=== PATIENT | female | born 1940 | race Caucasian/White ===

== ENCOUNTER 2018-08-24 11:45 | Day surgery (SDC) | payer MEDICARE, SELFPAY ==
[2018-08-24 12:00] VITALS: BP 134/96; PULSE 86; RESP 16; TEMP 37.6; O2SAT 99; BMI 18.2
--- NOTE | 2018-08-24 12:00 | COLBX_PTH ---
PATIENT: ESTEBAN RAINEY LOC: EN U#:[id number] AGE/SX: 77/F ROOM: RE08/24/[address]: Dr. Neris Muñoz MD : [id number] BED: DIS: 08/24/2018 SPEC #: [id number] RECD: 08/24/18 13:22 STATUS: JOSIAH REDanielle #: [id number] LAURA: 08/24/18 12:[address]: Neris Muñoz DEPT: SURGICAL PATHOLOGY RECD BY: Jailene Huggins ENTERED: 08/24/18 14:27 SP TYPE: COLON BX OT DR: MD Raven Rogers MD Tissues: A - COLON BIOPSY B - Ileum, NOS Procedures: Trichrome (control) Special Stain Group II Surgery Specimen Level IV HEADER OPERATION: Colonoscopy (MAC) PRE-OP DIAGNOSIS: Altered bowel habits TISSUE SUBMITTED: A - Random colon biopsies, B - Terminal ileum biopsy MICROSCOPIC DIAGNOSIS A. Colon, random biopsy: Lymphocytic colitis. B. Terminal ileum, biopsy: Fragments of colonic mucosa with lymphocytic colitis. AM:nahum 08/25/18 COMMENT A. Trichrome stain with matched control does not reveal a thickened basal plate. MICROSCOPIC DESCRIPTION Slides are reviewed. GROSS DESCRIPTION A - Received in fixative is one container labeled with the patient's name and designated random colon biopsy. The specimen consists of multiple irregular fragments of light freeman soft tissue that in aggregate measure 2.5 x 0.5 x 0.1 cm. The specimen is totally submitted in one cassette. B - Received in fixative is one container labeled with the patient's name and designated terminal ileum biopsy. The specimen consists of two irregular fragments of light freeman soft tissue that in aggregate measure 0.6 x 0.2 x 0.1 cm. The specimen is totally submitted in one cassette. / ANNA:nahum 08/24/18 TC:3 CPT: 05048 x2, 04583
[2018-08-24 13:00] VITALS: BP 114/102; BP 134/96; PULSE 64; RESP 16; TEMP 36.4; O2SAT 100
[2018-08-24 13:05] VITALS: BP 125/72; BP 134/96; PULSE 68; RESP 16; O2SAT 100
--- NOTE | 2018-08-24 13:09 | PCM.OPRPT ---
Report of Operation Date of Procedure: 08/24/18 Pre-Operative Diagnosis: altered bowel habits Post-Operative Diagnosis: same Surgery/Procedure Performed:: colonoscopy with biopsies Description of Surgical Findings:: severe diverticulosis with spastic sigmoid colon Type of Anesthesia:: MAC Anesthesiologist: Ha Morales Specimen's removed: mucosal biopsy of terminal ileum, andom mucosal biopsies of the colon Estimated Blood Loss (mL): < 5ml Fluids Replaced: see anesthesia note Description of Procedure: After informed consent was given, the patient was brought to the endoscopy suite. Appropriate time out protocol was followed. Appropriate cardiac, blood pressure, and pulse oximetry monitoring was placed. After stable vital signs were noted, the patient was given intravenous conscious sedation. The patient was then placed in the left lateral decubitis position. The colonoscope was lubricated and carefully inserted into the patient?s anus. It was then advanced into the rectum, then into the sigmoid colon, then into the left descending colon, past the splenic flexure, into the transverse colon, past the hepatic flexure, then down into the right descending colon and into the cecum. The cecum was identified by: transillumination, confluence of the tenae coli, identification of the ileocecal valve and appendiceal orifice, and external pressure with indentation. The terminal ileum was intubated and mucosal biopsies were taken with cold grasper forceps. Random mucosal biopsies were taken throughout the colon because of the patient's history of altered bowel habits. The colonoscope was slowly retracted back and the entire colonic mucosa was examined. There was no evidence of extrinsic compression and no inflammatory changes were noted. The colon cleansing preparation was adequate. No intraluminal obstructing lesions, no strictures, and no ulcers were noted. Retroflex view in the rectum revealed no lesions in the rectal vault except for hemorrhoidal disease. The colonoscope was removed intact. Patient was brought to the Recovery Room in stable condition. - Complications none noted
[2018-08-24 13:10] VITALS: BP 124/81; BP 134/96; PULSE 69; RESP 16; O2SAT 98
[2018-08-24 13:15] VITALS: BP 129/73; BP 134/96; PULSE 66; RESP 16; TEMP 36.6; O2SAT 100
[2018-08-24 13:40] VITALS: BP 134/96
== END 2018-08-24 13:55 | disposition home or self-care (01) ==
LOC: EN 11:46 → AC 11:48
PROVIDERS: Family Provider Internal Medicine; PCP Internal Medicine; Referring Provider Surgery; Visit Provider Surgery
PROC: 0DJD8ZZ Inspection of Lower Intestinal Tract, Via Natural or Artificial Opening Endoscopic (ICD-10-PCS; CPT 45378; principal; 2018-08-24 11:55)
DX: K52.832 Lymphocytic colitis (principal); I10 Essential (primary) hypertension; I27.20 Pulmonary hypertension, unspecified; I49.3 Ventricular premature depolarization; J44.9 Chronic obstructive pulmonary disease, unspecified; F17.200 Nicotine dependence, unspecified, uncomplicated; Z78.0 Asymptomatic menopausal state; Z79.82 Long term (current) use of aspirin; Z79.899 Other long term (current) drug therapy; Z80.0 Family history of malignant neoplasm of digestive organs
CPT/HCPCS: 45380; 88305; 88313; J7120

== ENCOUNTER 2020-01-08 19:09 | Emergency (ER) | payer MEDICARE, SELFPAY ==
[2020-01-08 19:10] VITALS: BP 116/77; PULSE 83; RESP 20; TEMP 37.2; O2SAT 95; BMI 18.6
--- NOTE | 2020-01-08 19:57 | RAD_ITS ---
STUDY: X-RAY CHEST REASON FOR EXAM: Female, 79 years old. SHORTNESS OF BREATH STARTED TODAY. DIARRHEA SINCE YESTERDAY. URGENT CARE PLACED ON Z-DENY ON FRIDAY FOR SINUS. DENIES FEVER. TECHNIQUE: PA and lateral views of the chest. COMPARISON: None. FINDINGS: There is hyperinflation of the lungs consistent with chronic obstructive lung disease (COPD). There is no demonstrated pleural abnormality. Normal size heart. Normal mediastinum and manuel. Normal visualized pulmonary arteries. Normal visualized aortic arch and descending thoracic aorta. Normal visualized thoracic spine. Normal visualized ribs, clavicles, and shoulders. There is no demonstrated abnormality of the visualized soft tissue structures of the upper abdomen. RAD/Chest PA and Lateral IMPRESSION: Emphysema without pneumonia or atelectasis. Electronically Signed: Juan Luis Allison MD at 20:38 EST Tel , Service support ,
--- NOTE | 2020-01-08 19:58 | ED.VIS.GEN ---
History of Present Illness Chief Complaint: General Illness Informant: Patient Onset: Yesterday Narrative: Patient was seen in urgent care yesterday for congestion and slight short of breath. She was given a Z-Hi for possible sinus infection. She developed diarrhea and is now having frequent diarrhea as well. Patient states she feels lightheaded if she gets up or walks around. She has some chest congestion but denies chest pain. Past Medical History - Allergies and Home Meds Allergies/Adverse Reactions: Allergies No Known Allergies Allergy (Verified 08/20/18 10:34) Primary Care Physician: Raven Ornelas MD [Primary Care Provider] - 1 Week Prior records reviewed: Yes Smoking Status: Current every day smoker Review of Systems General: Reports: Chills. Denies: Fever Eyes: Denies: Visual changes - bilaterally ENT: Denies: Sore throat Cardiovascular: Reports: - - Chest congestion. Denies: Chest pain Respiratory: Reports: Dyspnea, Cough Gastrointestinal: Reports: Diarrhea Genitourinary: Denies: Dysuria Musculoskeletal: Reports: Myalgias. Denies: Extremity Pain Skin: Denies: Rash Neurological: Denies: Headache Physical Exam Vital Signs/Narrative: Vital Signs Temp Pulse Resp BP Pulse Ox 01/08/20 19:10 98.9 F 83 20 H 116/77 95 Inital Vital Signs reviewed: Yes General: Well nourished, Well developed Head: Normocephalic Eyes: Perrl, EOMI ENT: Moist mucous membranes Neck: Supple Cardiovascular: Regular rate, Regular rhythm Respiratory: No distress, - - Slight diminished air movement throughout. Abdomen: Soft, Nontender, Hypoactive bowel sounds Extremities: Nontender Skin: Normal color, No rash Neurological: Alert, Oriented x3 Psychological: Normal affect Diagnostic/Tx/Re-eval Impressions Chest X-Ray 01/08/20 19:57 IMPRESSION: Emphysema without pneumonia or atelectasis. Electronically Signed: Juan Luis Allison MD at 20:38 EST Tel , Service support , 01/08/20 19:57 Chest PA and Lateral [RAD] Stat 01/08/20 20:10 Mucosa - Nose Influenza Types A,B Direct FA (SAMANTHA) - Final Influenzae A Laboratory Results 01/08/20 01/08/20 20:09 20:09 WBC 9.5 RBC 3.97 L Hgb 12.7 Hct 37.8 MCV 95.2 MCH 32.0 MCHC 33.6 RDW Std Deviation 45.1 H RDW Coeff of Kate 13.0 Plt Count 127 L MPV 11.4 Immature Gran % (Auto) 0.500 Neut % (Auto) 80.1 H Lymph % (Auto) 12.9 L [place] % (Auto) 6.4 Eos % (Auto) 0.0 Baso % (Auto) 0.1 Absolute Neuts (auto) 7.6 Absolute Lymphs (auto) 1.23 Nucleated RBC % 0 Sodium 140 Potassium 4.0 Chloride 104 Carbon Dioxide 31.0 Anion Gap 5 BUN 39 H Creatinine 0.94 Estim Creat Clear Calc 38.93 Est GFR (MDRD) Af Amer 75 Est GFR (MDRD) Non-Af 62 BUN/Creatinine Ratio 41.7 H Glucose 151 H Calcium 8.5 - Medical Decision Making Patient was given a DuoNeb treatment with 2 mg of morphine and 4 mg of Zofran along with IV fluids. On repeat evaluation she does feel somewhat better. Test results are discussed with her. Her influenza test is positive for flu A. She is still within the 48-hour window for Tamiflu and does wish to pursue this. First dose is given here and prescription is sent to the pharmacy for her. ED Disposition - Plan for ED Patient: Disposition: Home or Assisted Living Diagnosis: Influenza Instructions: INFLUENZA (Adult) Prescriptions: Oseltamivir Phosphate [Tamiflu] 75 mg PO BID #10 cap Prescription Printed Referrals: Raven Ornelas MD [Primary Care Provider] - 1 Week
[2020-01-08 20:03] VITALS: PULSE 99; RESP 16
[2020-01-08] MEDS: Ipratropium/Albuterol Sulfate 3 ML AMPUL.NEB INHALATION (20:03)
[2020-01-08] MEDS: Ondansetron 4 MG/2 ML Vial IV (20:09)
[2020-01-08] MEDS: Morphine 2 MG/ML Syringe IV (20:09)
[2020-01-08] MEDS: 0.9% Normal Saline 1,000 ML 1000 ML IV (20:09)
[2020-01-08 20:18] LABS: Absolute Lymphocyte Count 1.23 X10^3/uL (0.83-4.51); Absolute Neutrophil Count 7.6 X10^3/uL (2.0-7.7); Basophil# 0.01 X10^3/uL; Basophil% 0.1 % (0-1); Hematocrit 37.8 % (37-47); Hemoglobin 12.7 g/dL (12.0-15.0); Lymphocyte # 1.23 X10^3/ul (4.0); Lymphocyte % 12.9 % (19-41); Mean Corp Hgb Conc 33.6 g/dL (32-36); Mean Corpuscular Volume 95.2 fL (81-99); Mean Platelet Vol. 11.4 fl (6.2-12.0); Monocyte# 0.61 X10^3/uL; Monocyte% 6.4 % (0-10); NRBC Flagged by Analyzer 0 % (0-5); Neutrophil % 80.1 % (47-70); Platelet Count 127 K/mm3 (150-450); RBC Distribution Width SD 45.1 fl (35.1-43.9); Red Blood Count 3.97 M/mm3 (4.2-5.4); White Blood Count 9.5 K/mm3 (4.4-11.0)
[2020-01-08 20:32] LABS: Anion Gap 5 (5-15); BUN 39 mg/dL (7-18); BUN/Creat Ratio 41.7 RATIO (10-20); Calcium,Total 8.5 mg/dL (8.5-10.1); Chloride 104 mmol/L (98-107); Creatinine, Serum 0.94 mg/dL (0.55-1.02); EST Glomerular Filtration Rate 62 mL/min (>60); Est Glom Filt Rate - Afr Amer 75 mL/min (>60); Estimated Creatinine Clearance 38.93 ml/min; Glucose 151 mg/dL (74-106); Sodium Level 140 mmol/L (136-145)
[2020-01-08] MEDS: Oseltamivir Phosphate 75 MG Capsule PO (22:55)
[2020-01-08 22:56] VITALS: BP 108/59; PULSE 84; RESP 18; O2SAT 92
== END 2020-01-08 22:59 | disposition home or self-care (01) ==
PROVIDERS: Emergency Provider Emergency Medicine; PCP Internal Medicine
DX: J11.1 Influenza due to unidentified influenza virus with other respiratory manifestations (principal); J43.9 Emphysema, unspecified; R19.7 Diarrhea, unspecified; F17.200 Nicotine dependence, unspecified, uncomplicated; Z79.899 Other long term (current) drug therapy
CPT/HCPCS: 71046; 80048; 85025; 87804; 94640; 99284; J7030; J7040; A4216; J2405

== ENCOUNTER 2020-01-09 17:57 | Inpatient (IN) | payer MEDICARE, SELFPAY ==
[2020-01-08 19:10] VITALS: BMI 18.6
[2020-01-09 17:58] VITALS: BP 107/77; PULSE 91; RESP 18; TEMP 37.1; O2SAT 93; BMI 20.7
--- NOTE | 2020-01-09 18:57 | RAD_ITS ---
STUDY: X-RAY CHEST REASON FOR EXAM: Female, 79 years old. Rectal bleeding. TECHNIQUE: Single AP portable view of the chest. COMPARISON: 01/08/2020. FINDINGS: There is hyperinflation of the lungs consistent with chronic obstructive lung disease (COPD). No definite infiltrates or effusions. There is no demonstrated pleural abnormality. There is mild cardiac enlargement. Normal mediastinum and manuel. Normal visualized pulmonary arteries. Normal visualized aortic arch and descending thoracic aorta. Normal visualized thoracic spine. Normal visualized ribs, clavicles, and shoulders. There is no demonstrated abnormality of the visualized soft tissue structures of the upper abdomen. RAD/Chest 1 View (Portable) IMPRESSION: There are findings consistent with COPD. There is no evidence of acute chest disease. Electronically Signed: Bj Quintana MD at 19:57 EST , Service support ,
--- NOTE | 2020-01-09 18:57 | EKG12_ITS ---
Test Reason : GI BLEED Blood Pressure : / mmHG Vent. Rate : 105 BPM Atrial Rate : 105 BPM P-R Int : 000 ms QRS Dur : 074 ms QT Int : 348 ms P-R-T Axes : 000 068 053 degrees QTc Int : 459 ms Atrial fibrillation with rapid ventricular response with premature ventricular or aberrantly conducte d complexes Nonspecific ST abnormality Abnormal ECG Confirmed by GRICEL MAZA ([id number]), editor department MACHELLE MCMAHAN ([id number]) on 01/12/2020 2:51:06 PM Referred By: ALANNA RIVAS Confirmed By:GRICEL MAZA
--- NOTE | 2020-01-09 18:58 | CT_ITS ---
STUDY: CT ABDOMEN AND PELVIS WITHOUT CONTRAST REASON FOR EXAM: Female, 79 years old. GI BLEED/UNCONTROLLED RECTAL BLEEDING X 3 DAYS RADIATION DOSAGE (If Supplied By Facility): CTDIvol = ( 12.60 ) mGy, DLP = ( 357.46 ) mGycm TECHNIQUE: Transaxial images were obtained from the dome of the diaphragm to the symphysis pubis without oral contrast, and without intravenous contrast. Sagittal and coronal images were reconstructed. Individualized dose optimization techniques were used for this CT. COMPARISON: None. FINDINGS: Limited views through the lower chest show scarring, atelectasis or infiltrate in the left lung base. There is cardiomegaly. Normal liver. Normal gallbladder and extrahepatic biliary system. Normal spleen. Normal pancreas. Normal bilateral adrenal glands. Normal right kidney. Normal left kidney. Evaluation of the GI tract is limited by absence of oral contrast. Cannot exclude stomach wall thickening. No dilated loops of bowel or evidence for obstruction. Cannot exclude segmental thickening of the [place] of the small or large bowel. Cannot exclude enteritis or colitis. Moderate diffuse fecal retention. Diverticulosis without definite diverticulitis. There is diffuse atherosclerotic calcification of the abdominal aorta, without a demonstrated aneurysm. Heavily calcified common iliac arteries. Normal inferior vena cava. Normal retroperitoneum. Normal urinary bladder. There is absence of the uterus consistent with a prior hysterectomy. Normal abdominal wall. There are diffuse degenerative changes of the visualized lumbar spine. CT/Abdomen/Pelvis W IV Cont ONLY IMPRESSION: No acute abnormality, but extremely limited evaluation of the GI tract because of the absence of oral contrast, making it impossible to evaluate without segments of enteritis and colitis not excluded. Electronically Signed: Bj Quintana MD at 20:32 EST , Service support ,
--- NOTE | 2020-01-09 18:59 | ED.VIS.GEN ---
History of Present Illness Chief Complaint: GI Bleed Informant: Patient Onset: Days Narrative: Patient was seen in the ER yesterday due to congestion, cough, diarrhea. She was diagnosed with influenza. Blood counts at that time were unremarkable. Patient states since going home her diarrhea has turned from dark to bright red blood with some clots. She denies abdominal pain. Her last colonoscopy was [address] Muñoz. There were no masses or polyps noted. She was noted to have diverticulosis. - Past Medical History (1) Hypertension Status: Chronic (2) History of appendectomy Status: Chronic Past Medical History - Allergies and Home Meds Allergies/Adverse Reactions: Allergies No Known Allergies Allergy (Verified 01/09/20 18:05) Prior records reviewed: Yes Smoking Status: Current every day smoker - Family History Maternal Family History: Reports: - - She denies any medical history in her mother. She reported that her mother of old age at the age of 86. Paternal Family History: Reports: Cancer - :, Diabetes Review of Systems General: Reports: Fever, Subjective Eyes: Denies: Visual changes - bilaterally ENT: Denies: Bilateral ear pain Cardiovascular: Denies: Chest pain Respiratory: Reports: Dyspnea, Cough Gastrointestinal: Reports: Diarrhea. Denies: Abdominal pain, Vomiting Musculoskeletal: Reports: Myalgias Skin: Denies: Rash, Wounds Neurological: Denies: Headache Hematologic: Denies: Easy bruising Allergy: Denies: Uticaria Physical Exam Vital Signs/Narrative: Vital Signs Temp Pulse Resp BP Pulse Ox 01/09/20 17:58 98.8 F 91 18 107/77 93 Inital Vital Signs reviewed: Yes General: Well nourished, Well developed Head: Normocephalic ENT: Moist mucous membranes Neck: Supple Cardiovascular: Regular rate, Regular rhythm Respiratory: No distress, CTA bilaterally Abdomen: Soft, Nontender, Hypoactive bowel sounds Skin: Normal color Neurological: Alert Psychological: Normal affect Diagnostic/Tx/Re-eval Impressions Chest X-Ray 01/09/20 18:57 IMPRESSION: There are findings consistent with COPD. There is no evidence of acute chest disease. Electronically Signed: Bj Quintana MD at 19:57 EST , Service support , Abdomen/Pelvis CT 01/09/20 18:58 IMPRESSION: No acute abnormality, but extremely limited evaluation of the GI tract because of the absence of oral contrast, making it impossible to evaluate without segments of enteritis and colitis not excluded. Electronically Signed: Bj Quintana MD at 20:32 EST , Service support , 01/09/20 18:57 Chest 1 View (Portable) [RAD] Stat 01/09/20 18:58 Abdomen/Pelvis W IV Cont ONLY [CT] Stat Laboratory Results 01/09/20 01/09/20 01/09/20 18:09 18:09 18:09 WBC 11.7 H RBC 2.90 L Hgb 9.1 L Hct 28.0 L MCV 96.6 MCH 31.4 MCHC 32.5 RDW Std Deviation 47.7 H RDW Coeff of Kate 13.3 Plt Count 111 L MPV 11.3 Immature Gran % (Auto) 0.400 Neut % (Auto) 81.0 H Lymph % (Auto) 13.6 L [place] % (Auto) 4.9 Eos % (Auto) 0.0 Baso % (Auto) 0.1 Absolute Neuts (auto) 9.5 H Absolute Lymphs (auto) 1.59 Nucleated RBC % 0 Differential Comment SCANNED PT 13.9 INR 1.1 APTT 27.1 Sodium 141 Potassium 4.0 Chloride 108 H Carbon Dioxide 29.0 Anion Gap 4 L BUN 32 H Creatinine 0.85 Estim Creat Clear Calc 43.84 Est GFR (MDRD) Af Amer 84 Est GFR (MDRD) Non-Af 69 BUN/Creatinine Ratio 37.8 H Glucose 99 Lactic Acid Calcium 8.2 L Blood Type Antibody Screen Crossmatch 01/09/20 01/09/20 18:09 19:10 WBC RBC Hgb Hct MCV MCH MCHC RDW Std Deviation RDW Coeff of Kate Plt Count MPV Immature Gran % (Auto) Neut % (Auto) Lymph % (Auto) [place] % (Auto) Eos % (Auto) Baso % (Auto) Absolute Neuts (auto) Absolute Lymphs (auto) Nucleated RBC % Differential Comment PT INR APTT Sodium Potassium Chloride Carbon Dioxide Anion Gap BUN Creatinine Estim Creat Clear Calc Est GFR (MDRD) Af Amer Est GFR (MDRD) Non-Af BUN/Creatinine Ratio Glucose Lactic Acid 1.7 Calcium Blood Type O POSITIVE Antibody Screen NEGATIVE Crossmatch See Detail - EKG Initial EKG Interpretation: Atrial Fibrillation - A. fib at 105. No acute ischemia. - Medical Decision Making Test results are discussed with patient and family at bedside. She is hemodynamically stable. Hemoglobin has dropped from 12.7-9.1 in the last 24 hours. Patient is typed and crossed for 2 units of blood. These are held in the bank. I did speak with Dr. Muñoz and she will follow along as needed. I spoke with the hospitalist regarding admission. ED Disposition - Plan for ED Patient: Disposition: Acute Care [facility] Diagnosis: GI bleed, Influenza
[2020-01-09 19:16] VITALS: BP 112/60; PULSE 82; RESP 16; O2SAT 96
[2020-01-09 19:16] LABS: Absolute Lymphocyte Count 1.59 X10^3/uL (0.83-4.51); Absolute Neutrophil Count 9.5 X10^3/uL (2.0-7.7); Basophil# 0.01 X10^3/uL; Basophil% 0.1 % (0-1); Differential Indicated SCAN CRITERIA MET; Hemoglobin 9.1 g/dL (12.0-15.0); Lymphocyte # 1.59 X10^3/ul (4.0); Lymphocyte % 13.6 % (19-41); Mean Corp Hgb Conc 32.5 g/dL (32-36); Mean Corpuscular Hgb 31.4 pg (27.0-32.0); Mean Corpuscular Volume 96.6 fL (81-99); Mean Platelet Vol. 11.3 fl (6.2-12.0); Monocyte# 0.57 X10^3/uL; Monocyte% 4.9 % (0-10); NRBC Flagged by Analyzer 0 % (0-5); Neutrophil # 9.49 X10^3/uL (2.7-7.7); POSITIVE MORPHOLOGY YES; Platelet Count 111 K/mm3 (150-450); RBC Distribution Width CV 13.3 % (11.6-14.6); RBC Distribution Width SD 47.7 fl (35.1-43.9); White Blood Count 11.7 K/mm3 (4.4-11.0)
[2020-01-09] MEDS: 0.9% Normal Saline 1,000 ML 1000 ML IV (19:17)
[2020-01-09 19:18] LABS: Anion Gap 4 (5-15); BUN 32 mg/dL (7-18); BUN/Creat Ratio 37.8 RATIO (10-20); Calcium,Total 8.2 mg/dL (8.5-10.1); Chloride 108 mmol/L (98-107); Creatinine, Serum 0.85 mg/dL (0.55-1.02); EST Glomerular Filtration Rate 69 mL/min (>60); Est Glom Filt Rate - Afr Amer 84 mL/min (>60); Estimated Creatinine Clearance 43.84 ml/min; Glucose 99 mg/dL (74-106); Sodium Level 141 mmol/L (136-145)
[2020-01-09 19:22] LABS: International Normalized Ratio 1.1; Partial Thromboplast Time 27.1 Seconds (24.1-36.2); Prothrombin Time (Protime)PT. 13.9 SECONDS (11.7-14.9)
[2020-01-09 19:55] LABS: Lactic Acid 1.7 mmol/L (0.4-1.9)
[2020-01-09 20:02] LABS: Differential Comment SCANNED
[2020-01-09 20:12] VITALS: BP 104/52; PULSE 102; RESP 21; TEMP 37.1; O2SAT 99
[2020-01-09] MEDS: 0.9% Normal Saline 1,000 ML 150 ML IV (20:34)
--- NOTE | 2020-01-09 20:41 | PCM.HP.STD ---
Problem List (1) Hypertension Status: Chronic (2) History of appendectomy Status: Chronic (3) GI bleed Status: Acute (4) Influenza Status: Acute History of Present Illness Date of Admission: 01/09/20 Chief Complaint: Bright red blood per rectum. The patient is a 79 year old F with a significant history of hypertension who presented to emergency department with bright red blood in stool per rectum. Symptoms started the day before presentation with black stools and the next day she had developed bright red blood in her stools. Also she had some clots in his stool. A day before presentation he was diagnosed with influenza A . With her influenza a she also had a diarrhea. She has a dry cough lightheadedness and nausea. Patient had a colonoscopy about a year ago with Dr. Muñoz (on 08/24/2018). Surgical findings were severe diverticulosis with spastic sigmoid colon. Past Medical History Past Medical History (Chronic Problems): Chronic Problems Hypertension (Chronic) History of appendectomy (Chronic) Allergies No Known Allergies Allergy (Verified 01/09/20 18:05) Home Medications: Ambulatory Orders Medication Instructions Recorded Ascorbic Acid [Vitamin C] 500 mg PO DAILY 08/20/18 Aspirin E.C. [Ecotrin] 81 mg PO DAILY@0800 08/20/18 Carvedilol [Coreg] 12.5 mg PO BID 08/20/18 Cholecalciferol (Vitamin D3) 5,000 unit PO DAILY 08/20/18 [Vitamin D3] Lisinopril [Zestril] 40 mg PO DAILY 08/20/18 Oseltamivir Phosphate [Tamiflu] 75 mg PO BID #10 cap 01/08/20 Surgical History: hysterectomy Smoking Status: Current every day smoker Tobacco Use: Cigarettes - *Family History Maternal History Items: - - She denies any medical history in her mother. She reported that her mother of old age at the age of 86. Paternal History Items: Cancer - :, Diabetes Review of Systems Constitutional: Denies: Chills, Fever, Weight Change HEENT: Denies: Head Aches, Sinus Congestion, Sinus Drainage Cardiovascular: Reports: Light Headedness. Denies: Chest Pain, Palpitations Respiratory: Reports: Cough. Denies: Shortness of breath at rest, Sputum production Gastrointestinal: Reports: Hematochezia, Nausea. Denies: Abdominal Pain, Vomiting Genitourinary: Denies: Dysuria Musculoskeletal: Denies: Joint Pain, Joint Tenderness Skin: Denies: Rash, Wounds Neurological: Denies: Numbness, Tingling, Focal weakness Psychiatric: Denies: Anxiety, Depression, Homicidal Ideations, Suicidal Ideations Hematologic/ Lymphatic: Denies: Easy Bruising, Easy Bleeding VTE Information - Inpt Only VTE Present on Admission: No VTE Mechan Device Prophylaxis: SCD's VTE Pharm Prophylaxis ordered?: No Patient Problems: Active and Suspected Problems GI bleed (Acute) Influenza (Acute) - Physical Exam Vitals/I&O's: Vital Signs Temp Pulse Resp BP Pulse Ox 98.7 F 102 H 21 H 104/52 L 99 01/09/20 20:12 01/09/20 20:12 01/09/20 20:12 01/09/20 20:12 01/09/20 20:12 Oxygen Flow Rate (L/min) 2 Oxygen Delivery Method Nasal Cannula Weight: 51.6 kg Body Mass Index (BMI) 20.7 Intake and Output for Last 24 Hours 01/07/20 01/08/20 01/09/20 23:59 23:59 23:59 Intake Total 1000 / 1000 Balance 1000 / 1000 General: Alert, Oriented x3, Cooperative HEENT: Atraumatic, PERRLA, EOMI, Normocephalic Neck: Supple, No JVD, Negative Carotid Bruits Lungs: Clear to auscultation, Normal air movement Cardiovascular: Regular rate, Normal S1, Normal S2, No murmurs Abdomen: Bowel Sounds Present, Soft, Non Tender, - - Rectal exam showed a bladder red blood per rectum. No masses or hemorrhoids were palpated. Extremities: No edema, Capillary Refill Less than 3 Seconds Skin: No rashes, No breakdown Musculoskeletal: No Tenderness to Palpation of Joints or Extremities Neurological: Cranial nerves II-XII grossly intact Psych/Mental Status: Normal Affect, Appropriate Laboratory Results 01/09/20 18:09: WBC 11.7 H, RBC 2.90 L, Hgb 9.1 L, Hct 28.0 L, MCV 96.6, MCH 31.4, MCHC 32.5, RDW Std Deviation 47.7 H, RDW Coeff of Kate 13.3, Plt Count 111 L, MPV 11.3, Immature Gran % (Auto) 0.400, Neut % (Auto) 81.0 H, Lymph % (Auto) 13.6 L, [place] % (Auto) 4.9, Eos % (Auto) 0.0, Baso % (Auto) 0.1, Absolute Neuts (auto) 9.5 H, Absolute Lymphs (auto) 1.59, Nucleated RBC % 0, Differential Comment SCANNED 01/09/20 18:09: PT 13.9, INR 1.1, APTT 27.1 01/09/20 18:09: Sodium 141, Potassium 4.0, Chloride 108 H, Carbon Dioxide 29.0, Anion Gap 4 L, BUN 32 H, Creatinine 0.85, Estim Creat Clear Calc 43.84, Est GFR (MDRD) Af Amer 84, Est GFR (MDRD) Non-Af 69, BUN/Creatinine Ratio 37.8 H, Glucose 99, Calcium 8.2 L 01/09/20 19:10: Lactic Acid 1.7 Current Medications Sodium Chloride () 1,000 mls @ 150 mls/hr IV .[id number] [facility] Last Admin: 01/09/20 20:34 Dose: 150 mls/hr Documented by: Assessment/Plan All Active Problems GI bleed (Acute) Influenza (Acute) The patient is a 79 year old F with a significant history of hypertension who presented to emergency department with bright red blood in stool per rectum and a drop in hair hemoglobin consistent with acute blood loss anemia. Acute blood loss anemia Likely from diverticular bleed. Cannot rule out upper GI bleed. Her hemoglobin on presentation was 9.1. Her hemoglobin a day before was 12.7. At emergency part the patient was type and crossed. Trend H&H. We will give Protonix. Keep patient n.p.o. No chemical thromboprophylaxis. Emergent department doctor discussed the case with general surgeon Dr. Muñoz who will be following patient. Home blood pressure medications. Hold home aspirin. Influenza A infection Continue Tamiflu. Adjust for creatinine clearance. Tobacco abuse Consult Nicotine patch prescribed. DVT prophylaxis SCD Code Visit Inpatient E&M: 07275 Init Hosp L3
[2020-01-09 21:41] VITALS: BP 104/76; PULSE 97; RESP 17; O2SAT 94
[2020-01-09 21:59] VITALS: BMI 19.3; BMI 19.4
[2020-01-09 22:24] VITALS: BP 111/63; PULSE 81; RESP 24; TEMP 37.2; O2SAT 98
[2020-01-09] MEDS: Oseltamivir Phosphate 30 MG Capsule PO (22:34)
[2020-01-09] MEDS: guaiFENesin 1,200 MG Tablet 1200 MG PO (22:34)
[2020-01-10] VITALS (8 sets, daily range): BP systolic 107–134; BP diastolic 66–79; PULSE 68–88; RESP 16–22; TEMP 36.6–37.2; O2SAT 94–98
[2020-01-10 00:46] LABS: Hematocrit 23.8 % (37-47); Hemoglobin 7.7 g/dL (12.0-15.0); POSITIVE COUNT YES
--- NOTE | 2020-01-10 01:06 | NURSING ---
1L NS FROM ED INFUSING @100 SINCE PT ARRIVED.
[2020-01-10 06:36] LABS: Hematocrit 28.4 % (37-47); Hemoglobin 9.4 g/dL (12.0-15.0); POSITIVE COUNT YES
[2020-01-10] MEDS: Oseltamivir Phosphate 30 MG Capsule PO ×2 (09:18→21:36)
[2020-01-10] MEDS: 0.9% Normal Saline 1,000 ML 100 ML IV ×2 (09:18→18:15)
[2020-01-10] MEDS: guaiFENesin 1,200 MG Tablet 1200 MG PO ×2 (09:18→21:36)
[2020-01-10] MEDS: Electrolyte Solution/Peg's 4000 ML PO (09:32)
--- NOTE | 2020-01-10 10:58 | PCM.CONS.B ---
- Consult Date of Consult: 01/10/20 - Reason for Consult CC: rectal bleeding HISTORY OF PRESENT ILLNESS: Mary Pool a 79 year old female who presents with rectal bleeding, noting BRBPR and clots. Findings of Hgb of 7.7. She had a colonoscopy 08/24/18 - noted to have severe diverticulosis, and pathology findings from random mucosal biopsies to have lymphocytic colitis. She was asymptomatic at the time and declined treatment for lymphocytic colitis. CT scan without oral contrast - suboptimal. Complaint of diarrhea prior to above. ?? PAST MEDICAL HISTORY ? Bilateral keratitis sicca ? ? COPD (chronic obstructive pulmonary disease) (HCC) ? ? HTN (hypertension) ? ? Keratoconjunctivitis sicca of both eyes not specified as Sjogren's 03/19/2016 ? Pulmonary hypertension (HCC) ? ? per Dr. Spencer ? PVC's (premature ventricular contractions) 08/16/2014 ? PAST?SURGICAL?HISTORY ? CATARACT EXTRACTION HX ? ? ? bilateral ? HYSTERECTOMY HX ? ? ? KNEE ARTHROSCOPY/SURGERY ? ? ? bilateral- 20's ? REMOVE TONSILS/ADENOIDS,12+ Y/O ? ? ? FAMILY?HISTORY ? Colon Cancer Father ? CURRENT?MEDICATIONS lisinopril (ZESTRIL, PRINIVIL) 40 mg tablet Take 1 tablet by mouth once daily. Disp: 90 tablet Rfl: 1 sertraline (ZOLOFT) 50 mg tablet Take 1 tablet by mouth once daily. Disp: 30 tablet Rfl: 3 carvedilol (COREG) 12.5 mg tablet Take 1 tablet by mouth twice daily with meals. Disp: 180 tablet Rfl: 3 tiZANidine (ZANAFLEX) 4 mg tablet Take 1 tablet by mouth every 6 hours as needed. Disp: 30 tablet Rfl: 5 aspirin, enteric coated (ASPIR-LOW) 81 mg EC tablet Take 1 tablet by mouth once daily. Disp: Rfl: 0 ?? SOCIAL HISTORY: Patient is single. She smokes 1 ppd and?reports her alcohol use as never. Daughter present REVIEW OF SYSTEMS: GENERAL: No weight loss, malaise or fevers CARDIOVASCULAR: Hypertension. Pulmonary hypertension. Respiratory: COPD. Pulmonary hypertension. GI: see HPI PSYCH: Negative for sleep disturbance or?mood disorder.Positive for family stressors. HEMATOLOGY/LYMPHOLOGY Negative for prolonged bleeding, bruising easily or swollen nodes ENDOCRINE: Negative for cold or heat intolerance, polyuria, polydipsia and goiter NEURO: ?No history of headaches, syncope, paralysis, seizures or tremors All other reviewed and negative other than HPI. ?? PHYSICAL EXAMINATION: Vitals: temp 98.1F, Blood pressure 119/77, pulse 78, height 161.3 cm (5' 3.5), weight 49 kg (108 lb). General Appearance: Well appearing, alert, in no acute distress. Thin. Skin: Skin color, texture, turgor normal, no suspicious rashes or lesions. Head: Normocephalic, no masses, lesions, tenderness or abnormalities. Eyes: Anicteric sclera. Oropharynx: Lips, mucosa, and tongue normal, oropharynx normal. Neck: Supple, no adenopathy. Lungs: Lungs clear to auscultation. No wheezing, rhonchi, rales. Heart: RRR with 1/6?murmur. Abdomen: Abdomen soft, non-tender. Bowel sounds normal. No masses, organomegaly. Extremities: No deformities, edema, skin discoloration, clubbing or cyanosis. Peripheral Pulses: Normal. Neurologic: non focal ?? Impression: rectal bleeding, anemia, known lymphocytic colitis ?? Plan: I have discussed above with patient. Will plan for colonoscopy today. I have told patient risks of procedure, including but not limited to: infection, bleeding, preforation of the GI tract, injury to any internal organs such as liver/spleen, inability to complete the procedure, complications of anesthesia, etc. - she understands. She wishes to proceed. She will need to undergo prep, she had been given the prep at least an hour ago and drank only one glass. I told patient that if she does not complete it today, the procedure will be done tomorrow afternoon. I have answered all her questions and she has no further questions.
[2020-01-10] MEDS: Acetaminophen 325 MG Tablet 650 MG PO (11:01)
[2020-01-10] MEDS: Ondansetron 4 MG/2 ML Vial IV (11:35)
[2020-01-10] MEDS: 0.9% Saline Lock 10 ML Syringe IV (11:35)
--- NOTE | 2020-01-10 12:00 | CASEMGMT ---
RN [facility] Face to Face with patient for initial transition planning/care coordination assessment. RN CM introduced self and role at [facility]. Patient lying in bed, alert and oriented. Patient willing to participate in assessment and is able to answer all questions appropriately. Care providers, pharmacy, and demographics verified. Patient wishes to discharge home, denies need for home health at this time. Patient states she has no further needs or concerns at this time. CM to follow for discharge planning needs that may arise. PCP: Ceci Specialists: Johanna Graphic Design Professor Preferred Pharmacy: [facility] Insurance: [place] [facility] Prescription Benefit: yes Living Will/HPOA: none LNOK: son and daughter Living Arrangements: Patient lives alone in 1 story home with 1 step to enter the home. Transportation: self/ son or daughter DME/HHC: Patient denies need for DME or HHC. Disposition Plan: Patient to discharge home with family support and follow-up plans in place. Will monitor for need for home oxygen. Franci HERRERA, RN, CM
--- NOTE | 2020-01-10 18:50 | PN_ITS ---
Patient Problems: Active and Suspected Problems GI bleed (Acute) Influenza (Acute) Subjective: Patient was seen and examined today, she denies any abdominal pain, shortness of breath, or chest pain. Patient is currently being prepped for colonoscopy tomorrow, I talked with Dr. Muñoz briefly today and patient was not able to finish her GoLYTELY prep as of late this afternoon, general surgery does not want her to have an alternate prep because they feel that the prep will not be adequate for visualization of the colon. I explained this to the patient and her daughter late this afternoon. His hemoglobin today was 9.4. Vitals/I&O's: Vital Signs Temp Pulse Resp BP Pulse Ox 98.9 F 69 18 121/68 H 97 01/10/20 15:43 01/10/20 15:43 01/10/20 15:43 01/10/20 15:43 01/10/20 15:43 Oxygen Flow Rate (L/min) 2 Oxygen Delivery Method Nasal Cannula Weight: 48 kg Body Mass Index (BMI) 19.3 Intake and Output for Last 24 Hours 01/08/20 01/09/20 01/10/20 23:59 23:59 23:59 Intake Total 1170 / 1270 1805 / 1805 Output Total 450 / 450 Balance 1170 / 1070 1355 / 1355 General: Alert, Oriented x3, Cooperative, No apparent distress, Well developed, Well nourished HEENT: Atraumatic, PERRLA, EOMI, Normocephalic Oral: Moist Mucosa Neck: Supple, No JVD, Trachea Midline, Thyroid Normal Size and Texture Lungs: Clear to auscultation, Normal air movement, No rhonchi, No wheeze Cardiovascular: Regular rate, Regular Rhythm, Normal S1, Normal S2, No murmurs, PMI Normal, No rub noted Abdomen: Bowel Sounds Present, Soft, Non Tender, Non-Distended Extremities: No edema, Capillary Refill Less than 3 Seconds Skin: No rashes, No breakdown Musculoskeletal: No Tenderness to Palpation of Joints or Extremities Neurological: Cranial nerves II-XII grossly intact, Neuro grossly intact, Senso ry exam intact to light touch and pain, Coordination normal Psych/Mental Status: Normal Affect, Appropriate, Alert and oriented to time, place, person, mood and affect Laboratory Results 01/09/20 18:09: WBC 11.7 H, RBC 2.90 L, Hgb 9.1 L, Hct 28.0 L, MCV 96.6, MCH 31.4, MCHC 32.5, RDW Std Deviation 47.7 H, RDW Coeff of Kate 13.3, Plt Count 111 L, MPV 11.3, Immature Gran % (Auto) 0.400, Neut % (Auto) 81.0 H, Lymph % (Auto) 13.6 L, [place] % (Auto) 4.9, Eos % (Auto) 0.0, Baso % (Auto) 0.1, Absolute Neuts (auto) 9.5 H, Absolute Lymphs (auto) 1.59, Nucleated RBC % 0, Differential Comment SCANNED 01/09/20 18:09: PT 13.9, INR 1.1, APTT 27.1 01/09/20 18:09: Sodium 141, Potassium 4.0, Chloride 108 H, Carbon Dioxide 29.0, Anion Gap 4 L, BUN 32 H, Creatinine 0.85, Estim Creat Clear Calc 43.84, Est GFR (MDRD) Af Amer 84, Est GFR (MDRD) Non-Af 69, BUN/Creatinine Ratio 37.8 H, Glucose 99, Calcium 8.2 L 01/09/20 18:09: Blood Type O POSITIVE, Antibody Screen NEGATIVE, Crossmatch See Detail 01/09/20 19:10: Lactic Acid 1.7 01/10/20 00:19: Hgb 7.7 L, Hct 23.8 L 01/10/20 06:15: Hgb 9.4 L, Hct 28.4 L Current Medications Acetaminophen (Tylenol) 650 mg PO Q6H PRN PRN PRN Reason: HEADACHE Last Admin: 01/10/20 11:01 Dose: 650 mg Documented by: Glucagon () 1 mg IM .X1 PRN PRN Reason: Hypoglycemia Guaifenesin (Mucinex) 1,200 mg PO BID POP Last Admin: 01/10/20 09:18 Dose: 1,200 mg Documented by: Sodium Chloride () 1,000 mls @ 100 mls/hr IV .Q10H POP Last Admin: 01/10/20 18:15 Dose: 100 mls/hr Documented by: Dextrose (Dextrose 10%-Water) 250 mls @ 999 mls/hr IV .Q16M PRN; Protocol PRN Reason: HYPOGLYCEMIA Pantoprazole Sodium 40 mg/ (Sodium Chloride) 110 mls @ 330 mls/hr IV Q12 POP Last Admin: 01/10/20 09:17 Dose: Not Given Documented by: Sodium Chloride () 250 mls @ 15 mls/hr IV .[id number] PRN PRN Reason: Saline Flush Sodium Chloride () 250 mls @ 15 mls/hr IV .[id number] PRN PRN Reason: Additional IVPB Infusion Nicotine (Nicoderm Cq (Pbkc)) 14 mg TRANSDERM. DAILY POP Last Admin: 01/10/20 09:17 Dose: Not Given Documented by: Ondansetron HCl (Zofran) 4 mg IV Q8H PRN PRN PRN Reason: NAUSEA/VOMITING Last Admin: 01/10/20 11:35 Dose: 4 mg Documented by: Oseltamivir Phosphate (Tamiflu) 30 mg PO BID [facility] Stop: 01/13/20 22:01 Last Admin: 01/10/20 09:18 Dose: 30 mg Documented by: Sodium Chloride () 10 - 40 ml IV UD PRN PRN Reason: SALINE FLUSH Last Admin: 01/10/20 11:35 Dose: 10 ml Documented by: STROKE Vital Signs/Narrative: Vital Signs Temp Pulse Resp BP Pulse Ox 01/10/20 15:43 98.9 F 69 18 121/68 H 97 Medical Necessity - Tobacco Use Smoking Status: Current every day smoker Tobacco Use: Cigarettes Assessment/Plan All Active Problems GI bleed (Acute) Influenza (Acute) #1 acute lower GI bleed probably from diverticular bleed-patient will undergo colonoscopy tomorrow if she is able to finish her prep, H&H will be rechecked tomorrow #2 influenza A-continue Tamiflu #3 acute blood loss anemia requiring transfusion-recheck H&H #4 essential hypertension Code Visit Inpatient E&M: 28317 Subs Hosp L2
[2020-01-11] VITALS (12 sets, daily range): BP systolic 100–135; BP diastolic 64–88; PULSE 78–107; RESP 16–20; TEMP 36.6–37.3; O2SAT 83–98; BMI 19.3
--- NOTE | 2020-01-11 | COLBX_PTH ---
PATIENT: ESTEBAN RAINEY LOC: MS3 U#:[id number] AGE/SX: 79/F ROOM: MS315 RE01/09/[address]: Dr. Agustin Quiroga DO : 1940 BED: 1 DIS: 01/12/2020 SPEC #: [id number] RECD: 01/11/20 15:51 STATUS: JOSIAH REQ #: [id number] LAURA: 01/11/20 00:[address]: Neris Muñoz DEPT: SURGICAL PATHOLOGY RECD BY: Eloy Razo ENTERED: 01/12/20 09:21 SP TYPE: COLON BX OTHR DR: MD Dr. Ayaz Rogers MD Dr. Mark Tereletsky, DO Tissues: A - Cecum, NOS B - Right colon Procedures: Surgery Specimen Level IV HEADER OPERATION: Colonoscopy (MAC) PRE-OP DIAGNOSIS: Rectal bleeding, anemia TISSUE SUBMITTED: A - Cecal biopsy, B - Right colon polyp MICROSCOPIC DIAGNOSIS A. Cecum, biopsy: Fragment of benign colonic mucosa. B. Right colon, biopsy: Fragments of serrated adenoma. AM:nahum 01/13/20 MICROSCOPIC DESCRIPTION Slides are reviewed. GROSS DESCRIPTION A - Received in fixative is one container labeled with the patient's name and designated cecal biopsy. The specimen consists of two minute fragments of light freeman soft tissue that in aggregate measure 0.2 x 0.1 x 0.1 cm. The specimen is totally submitted in one cassette. B - Received in fixative is one container labeled with the patient's name and designated right colon polyp. The specimen consists of multiple irregular fragments of light freeman soft tissue that in aggregate measure 1 x 0.5 x 0.2 cm. The specimen is totally submitted in one cassette. / SJ:nahum 01/12/20 TC:5 CPT: 88983 x2
[2020-01-11] MEDS: 0.9% Normal Saline 1,000 ML 100 ML IV ×3 (03:25→15:36)
[2020-01-11 06:39] LABS: Absolute Lymphocyte Count 1.45 X10^3/uL (0.83-4.51); Absolute Neutrophil Count 8.3 X10^3/uL (2.0-7.7); Basophil# 0.01 X10^3/uL; Basophil% 0.1 % (0-1); Hematocrit 30.2 % (37-47); Hemoglobin 9.8 g/dL (12.0-15.0); Lymphocyte # 1.45 X10^3/ul (4.0); Lymphocyte % 14.1 % (19-41); Mean Corp Hgb Conc 32.5 g/dL (32-36); Mean Corpuscular Hgb 31.2 pg (27.0-32.0); Mean Corpuscular Volume 96.2 fL (81-99); Mean Platelet Vol. 11.4 fl (6.2-12.0); Monocyte# 0.44 X10^3/uL; Monocyte% 4.3 % (0-10); NRBC Flagged by Analyzer 0 % (0-5); Neutrophil # 8.27 X10^3/uL (2.7-7.7); Neutrophil % 80.2 % (47-70); POSITIVE MORPHOLOGY YES; Platelet Count 105 K/mm3 (150-450); RBC Distribution Width CV 14.3 % (11.6-14.6); RBC Distribution Width SD 50.5 fl (35.1-43.9); Red Blood Count 3.14 M/mm3 (4.2-5.4); White Blood Count 10.3 K/mm3 (4.4-11.0)
[2020-01-11 06:43] LABS: Differential Indicated SCAN CRITERIA MET
[2020-01-11 06:52] LABS: International Normalized Ratio 1.1; Prothrombin Time (Protime)PT. 14.4 SECONDS (11.7-14.9)
[2020-01-11 06:54] LABS: Partial Thromboplast Time 34.1 Seconds (24.1-36.2)
[2020-01-11 06:59] LABS: Differential Comment SCANNED; Platelet Estimate SLT DEC (ADEQ); Red Cell Morphology NORM C+C NORMAL (NORM C&C)
[2020-01-11 07:06] LABS: Anion Gap 8 (5-15); BUN 9 mg/dL (7-18); BUN/Creat Ratio 16.3 RATIO (10-20); Calcium,Total 7.5 mg/dL (8.5-10.1); Chloride 107 mmol/L (98-107); Creatinine, Serum 0.55 mg/dL (0.55-1.02); EST Glomerular Filtration Rate 113 mL/min (>60); Est Glom Filt Rate - Afr Amer 137 mL/min (>60); Glucose 87 mg/dL (74-106); Sodium Level 141 mmol/L (136-145)
--- NOTE | 2020-01-11 11:04 | NURSING ---
Family, 2 daughters, concerned pt has been NPO since 0200, she is 79 years old, has not been eating x 6 to 7 days, and aware that she is getting IV flds, they have a brother who is a medical researcher,research does not support being npo this long. They were informed we do not know time when the scope will be done, assured them nurse would contact and get back to them. They are aware Dr Muñoz is in [place] this am. Dr. Quiroga was also texted and requested to call this nurse. However, he texted and said pt should continue to be NPO and also call anesthesia, Dr Ge said she may have water up to 1400. Family informed.
--- NOTE | 2020-01-11 11:32 | NURSING ---
When daughter was informed pt could have water up to 1400, she stated she feels there was a lack of communication. Nurse apologized and again asked if there was anything else she could do. No replied and said no, and thanked nurse for what she is doing.
--- NOTE | 2020-01-11 15:20 | PCA ---
pt off floor
--- NOTE | 2020-01-11 15:34 | OP.COLON_ITS ---
Patient Name: Mary Pool Procedure Date: 01/11/2020 1:37 PM Date of : 1940 Age: 79 Procedure: Colonoscopy Indications: Rectal bleeding, Iron deficiency anemia secondary to chronic blood loss Providers: Neris Muñoz MD Medicines: See the Anesthesia note for documentation of the administered medications Patient Profile: Refer to note in patient chart for documentation of history and physical. Last Colonoscopy: 2018. Complications: No immediate complications. Estimated blood loss: None. Procedure: Pre-Anesthesia Assessment: - see anesthesia note After I obtained informed consent, the scope was passed under direct vision. Throughout the procedure, the patient's blood pressure, pulse, and oxygen saturations were monitored continuously. The Colonoscope was introduced through the anus and advanced to the cecum, identified by the appendiceal orifice, IC valve and transillumination. The colonoscopy was performed without difficulty. The patient tolerated the procedure well. The quality of the bowel preparation was adequate. Scope In: 2:40:13 PM Scope Withdrawal Time 0 hours 26 minutes 7 seconds Scope Out: 3:21:59 PM Total Procedure Duration Time 0 hours 41 minutes 46 seconds Findings: rectal prolapse Many small and large-mouthed diverticula (severe diverticulosis) were found in the sigmoid colon and descending colon. A 5 to 10 mm polyp was found in the ascending colon. The polyp was sessile. This was biopsied with a cold forceps and a hot snare for histology. Biopsy was incomplete. Verification of patient identification for the specimen was done by the nurse. Estimated blood loss was minimal. A localized area of mildly hemorrhagic mucosa was found in the cecum. Area was successfully injected with 2 mL of a 1:10,000 solution of epinephrine for hemostasis. Estimated blood loss was minimal. Mucsoal biopsies taken for pathology - possible ischemic colitis or angioectasia. Impression: - Diverticulosis in the sigmoid colon and in the descending colon. - One 5 to 10 mm polyp in the ascending colon. Biopsied. - Hemorrhagic mucosa in the cecum. Injected. Recommendation: - [facility]. - Resume previous diet. - Repeat colonoscopy is recommended. The colonoscopy date will be determined after pathology results from today's exam become available for review. - Continue present medications. MD Neris Foster MD 01/11/2020 3:34:05 PM This report has been signed electronically. Number of Addenda: 0 Note Initiated On: 01/11/2020 1:37 PM
--- NOTE | 2020-01-11 15:34 | OP.CCLET_ITS ---
01/11/2020 Raven Ornelas [address] [phone] Re : Colonoscopy procedure for Mary Guillaumejulian Dear Dr. Ornelas This procedure was performed on Saturday, January 11, 2020. My impressions and recommendations are as follows: Impressions : - Diverticulosis in the sigmoid colon and in the descending colon. - One 5 to 10 mm polyp in the ascending colon. Biopsied. - Hemorrhagic mucosa in the cecum. Injected. Recommendations : - [facility] patient to [facility]. - Resume previous diet. - Repeat colonoscopy is recommended. The colonoscopy date will be determined after pathology results from today's exam become available for review. - Continue present medications. My findings are described in the full procedure note, which is enclosed. If I can be of further assistance, please feel free to contact me at Doctor phone number(s): , Work: . Sincerely, MD Neris Foster MD 01/11/2020 3:34:05 PM This report has been signed electronically.
[2020-01-11] MEDS: Acetaminophen 325 MG Tablet 650 MG PO (16:47)
--- NOTE | 2020-01-11 16:52 | PCM.PN.BLA ---
Progress Note Colonoscopy findings - Friable mucosa of cecum - angioectasia versus ischemic colitis - path pending. Can start regular diet, can discharge, I will follow up with patient as outpatient. STROKE Vital Signs/Narrative: Vital Signs Temp Pulse Resp BP Pulse Ox 01/11/20 16:29 98.3 F 81 20 H 121/68 H 95 01/11/20 15:50 98.2 F 107 H 16 108/67 98 01/11/20 15:45 107 H 16 115/77 98 01/11/20 15:40 100 16 100/71 97 01/11/20 15:30 99.1 F 106 H 20 H 101/70 95 01/11/20 13:43 98.5 F 90 16 132/78 H 98
--- NOTE | 2020-01-11 17:56 | DCINST_ITS ---
- Discharge Diagnoses Current Active Problems: Current Active and Chronic Problems GI bleed (Acute) Influenza (Acute) You will use the following diet at home:: No restrictions Your food should be the consistency of: Regular Your liquids should be the consistency of: Regular/Thin Discharge Activity: Return to Normal Activity Weight Bearing Status: Full weight bearing Allergies/Adverse Reactions: Allergies No Known Allergies Allergy (Verified 01/09/20 18:05) Medications to take at Discharge Ascorbic Acid [Vitamin C] 500 mg PO DAILY 08/20/18 Carvedilol [Coreg (Beta Tod)] 12.5 mg PO BID 08/20/18 Cholecalciferol (Vitamin D3) [Vitamin D3] 5,000 unit PO DAILY 08/20/18 Lisinopril [Zestril] 40 mg PO DAILY 08/20/18 Oseltamivir Phosphate [Tamiflu] 75 mg PO BID #10 cap 01/08/20 Primary Care Physician: Raven Ornelas MD [Primary Care Provider] - Please follow up with your Primary Care Physician in: in 1-2 weeks Test Results: Test results from this visit will be discussed in further detail at your follow- up appointment, if applicable.
--- NOTE | 2020-01-11 18:15 | RAD_ITS ---
STUDY: X-RAY CHEST REASON FOR EXAM: Female, 79 years old. Hypoxia TECHNIQUE: Frontal view COMPARISON: January 09, 2020 FINDINGS: The lungs are hyperaerated expanded. Right upper lobe interstitial prominence. Bibasilar infiltrates. Left pleural effusion. Normal size heart. Normal mediastinum and manuel. Normal visualized pulmonary arteries. Calcified visualized aortic arch and descending thoracic aorta. Normal visualized thoracic spine. Normal visualized ribs, clavicles, and shoulders. There is no demonstrated abnormality of the visualized soft tissue structures of the upper abdomen. RAD/Chest 1 View (Portable) IMPRESSION: The lungs are hyperaerated expanded. Right upper lobe interstitial prominence. Bibasilar infiltrates. Left pleural effusion. Electronically Signed: Beltran Myers DO at 20:22 EST Tel [phone], Service support ,
--- NOTE | 2020-01-11 18:36 | PCM.PROGNOTE ---
Patient Problems: Active and Suspected Problems GI bleed (Acute) Influenza (Acute) Subjective: Patient was seen and examined today, I discussed her care with general surgery today who performed a colonoscopy on the patient, during the colonoscopy, there was found to be evidence of friable mucosa in the cecum, this area was biopsied, there is also noted to be a sessile polyp in the ascending colon and evidence of severe diverticulosis in the sigmoid and descending colon. There is no evidence of any active bleeding. I was set to discharge the patient tonight when it was noted that her pulse ox was abnormal with a resting pulse ox of 84% on room air. Patient's discharge was canceled, I ordered a stat portable chest x-ray and patient was placed on aerosol treatments. It is my feeling at this time that the patient has significant COPD unless her chest x-ray tonight shows a developing pneumonia. Patient has been smoking for over 50 years. - Physical Exam Vitals/I&O's: Vital Signs Temp Pulse Resp BP Pulse Ox 98.0 F 86 18 106/65 93 01/11/20 18:04 01/11/20 18:04 01/11/20 18:04 01/11/20 18:04 01/11/20 18:18 Oxygen Flow Rate (L/min) 2 Oxygen Delivery Method Nasal Cannula Weight: 48 kg Body Mass Index (BMI) 19.3 Intake and Output for Last 24 Hours 01/09/20 01/10/20 01/11/20 23:59 23:59 23:59 Intake Total 1170 / 1270 2250 / 2250 2658.33 / 2658.33 Output Total 450 / 450 150 / 150 Balance 1170 / 1070 1800 / 1800 2508.33 / 2508.33 General: Alert, Oriented x3, Cooperative, No apparent distress, Well developed, Well nourished HEENT: Atraumatic, PERRLA, EOMI, Normocephalic Oral: Moist Mucosa Neck: Supple, Trachea Midline, Thyroid Normal Size and Texture Lungs: Clear to auscultation, No rhonchi, No wheeze, No rales, Diminished Cardiovascular: Regular rate, Regular Rhythm, Normal S1, Normal S2, No murmurs, No Ectopic Activity Abdomen: Bowel Sounds Present, Soft, Non Tender, Non-Distended Extremities: No clubbing, No cyanosis, No edema, Capillary Refill Less than 3 Seconds Skin: No rashes, No breakdown Musculoskeletal: No Tenderness to Palpation of Joints or Extremities, Cachexia Neurological: Cranial nerves II-XII grossly intact, Neuro grossly intact, Sensory exam intact to light touch and pain, Coordination normal Psych/Mental Status: Normal Affect, Appropriate, Alert and oriented to time, place, person, mood and affect Laboratory Results 01/11/20 06:02: WBC 10.3, RBC 3.14 L, Hgb 9.8 L, Hct 30.2 L, MCV 96.2, MCH 31.2, MCHC 32.5, RDW Std Deviation 50.5 H, RDW Coeff of Kate 14.3, Plt Count 105 L, MPV 11.4, Immature Gran % (Auto) 1.300 H, Neut % (Auto) 80.2 H, Lymph % (Auto) 14.1 L, Hardy % (Auto) 4.3, Eos % (Auto) 0.0, Baso % (Auto) 0.1, Absolute Neuts (auto) 8.3 H, Absolute Lymphs (auto) 1.45, Nucleated RBC % 0, Differential Comment SCANNED, Platelet Estimate SLT DEC, RBC Morphology NORM C+C 01/11/20 06:02: PT 14.4, INR 1.1, APTT 34.1 01/11/20 06:02: Sodium 141, Potassium 3.0 L, Chloride 107, Carbon Dioxide 26.0, Anion Gap 8, BUN 9, Creatinine 0.55, Estim Creat Clear Calc 35.70, Est GFR (MDRD) Af Amer 137, Est GFR (MDRD) Non-Af 113, BUN/Creatinine Ratio 16.3, Glucose 87, Calcium 7.5 L Current Medications Acetaminophen (Tylenol) 650 mg PO Q6H PRN PRN PRN Reason: HEADACHE Last Admin: 01/11/20 16:47 Dose: 650 mg Documented by: Albuterol/Ipratropium (Duoneb) 3 ml INHALATION Q6HWA.RT PPO Glucagon () 1 mg IM .X1 PRN PRN Reason: Hypoglycemia Guaifenesin (Mucinex) 1,200 mg PO BID POP Last Admin: 01/11/20 08:21 Dose: Not Given Documented by: Sodium Chloride () 1,000 mls @ 100 mls/hr IV .Q10H POP Last Admin: 01/11/20 15:36 Dose: 100 mls/hr Documented by: Dextrose (Dextrose 10%-Water) 250 mls @ 999 mls/hr IV .Q16M PRN; Protocol PRN Reason: HYPOGLYCEMIA Pantoprazole Sodium 40 mg/ (Sodium Chloride) 110 mls @ 330 mls/hr IV Q12 [facility] Last Infusion: 01/11/20 08:45 Dose: Infused Documented by: Sodium Chloride () 250 mls @ 15 mls/hr IV .[id number] PRN PRN Reason: Saline Flush Sodium Chloride () 250 mls @ 15 mls/hr IV .[id number] PRN PRN Reason: Additional IVPB Infusion Nicotine (Nicoderm Cq (Pbkc)) 14 mg TRANSDERM. DAILY [facility] Last Admin: 01/11/20 08:22 Dose: Not Given Documented by: Ondansetron HCl (Zofran) 4 mg IV Q8H PRN PRN PRN Reason: NAUSEA/VOMITING Last Admin: 01/10/20 11:35 Dose: 4 mg Documented by: Oseltamivir Phosphate (Tamiflu) 30 mg PO BID [facility] Stop: 01/13/20 22:01 Last Admin: 01/11/20 09:55 Dose: Not Given Documented by: Sodium Chloride () 10 - 40 ml IV UD PRN PRN Reason: SALINE FLUSH Last Admin: 01/10/20 11:35 Dose: 10 ml Documented by: Medical Necessity - Tobacco Use Smoking Status: Current every day smoker Tobacco Use: Cigarettes Assessment/Plan All Active Problems GI bleed (Acute) Influenza (Acute) #1 acute lower GI bleed-probably from colitis in the cecum-favor ischemic colitis according to general surgery, patient's aspirin will be stopped, hemoglobin today appears stable #2 influenza A-continue Tamiflu #3 acute blood loss anemia requiring transfusion-patient's hemoglobin had improved slightly today, I will not recheck her hemoglobin tomorrow #4 essential hypertension #5 hypoxia-probably secondary to longstanding COPD, chest x-ray will be performed tonight to rule out pneumonia, patient will be placed on aerosol treatments #6 severe protein and caloric malnutrition-nutritional services is seeing patient #7 frequent PACs-patient's heart rate appeared irregular today, I looked at tracings during her colonoscopy and an EKG that the patient had on admission to the hospital, it appears that the patient has frequent PACs-I do not feel that these tracings show evidence of atrial fib. Patient states that she has seen a dispensing lead in the past and they were never able to prove that the patient had atrial fibrillation. Code Visit Inpatient E&M: 34484 Subs Hosp L2
[2020-01-11] MEDS: Ipratropium/Albuterol Sulfate 3 ML AMPUL.NEB INHALATION (20:58)
[2020-01-11] MEDS: Oseltamivir Phosphate 30 MG Capsule PO (21:57)
[2020-01-11] MEDS: guaiFENesin 1,200 MG Tablet 1200 MG PO (21:57)
[2020-01-12] VITALS (10 sets, daily range): BP systolic 103–134; BP diastolic 71–80; PULSE 68–104; RESP 18–28; TEMP 36.5–36.9; O2SAT 85–98
[2020-01-12] MEDS: levoFLOXacin IV 750 MG/150 ML BAG 100 MG IV (02:03)
[2020-01-12] MEDS: 0.9% Normal Saline 1,000 ML 100 ML IV (02:03)
[2020-01-12] MEDS: Ceftriaxone 1 GM/50 ML BAG IV (05:38)
[2020-01-12] MEDS: Ipratropium/Albuterol Sulfate 3 ML AMPUL.NEB INHALATION ×2 (07:30→13:03)
[2020-01-12] MEDS: Acetaminophen 325 MG Tablet 650 MG PO (09:12)
[2020-01-12] MEDS: Oseltamivir Phosphate 30 MG Capsule PO (09:12)
[2020-01-12] MEDS: guaiFENesin 1,200 MG Tablet 1200 MG PO (09:12)
--- NOTE | 2020-01-12 11:48 | CASEMGMT ---
NEAL SIMON updated that patient will need home oxygen at discharge. Script received. NEAL SIMON provided patient with list of in-network DME and patient would like [employer]. NEAL SIMON sent referral to [employer] and arranged for portable tank to be delivered prior to discharge.
--- NOTE | 2020-01-13 14:19 | CASEMGMT ---
NEAL SIMON DC CALL DC DATE: 01.12.2020 DC DISPOSITION: Home with new Home Oxygen through [employer] DC DIAGNOSIS: GIB LACE/STRATA: 10/20 F/U APPT MADE PRIOR TO DC: NO MEDICATIONS ACQUIRED BY PT: yes Intro role of CM to patient via phone. Pt is able to speak with cm. States she is still feeling tired and not great. No specific worsening of symptoms per patient. Pt states she has her Home oxygen and is using it continuously. Pt states she was able to get her medications. Reviewed medications, no questions @ this time. Discussed post dc appoint with PCP. Pt has not made appt yet. NEAL SIMON offered to make appt for her, but pt declined. Pt states she can make appt, but first needs to check with family to see who can take her and when. Pt thanked NEAL SIMON for call, and no care improvement suggestions were given. NEAL SIMON reviewed with pt if symptoms worsen or do not improve, to call PCP's nurse and let them know she was in hospital and symptoms are continuing or worsening. Pt states she understands. Gamal HERRERA RN AC
--- NOTE | 2020-01-14 17:49 | PCM.DC.SUM ---
Discharge Date and Diagnosis Date of Admission: 01/09/20 Date of Discharge: 01/12/20 - Primary Discharge Diagnosis #1 acute lower GI bleed-probably from colitis in the cecum-favor ischemic colitis #2 influenza A-present on admission #3 acute blood loss anemia requiring transfusion-from lower GI bleeding #4 essential hypertension #5 hypoxia- secondary to longstanding COPD #6 severe protein and caloric malnutrition #7 PACs #8 positive strep pneumoniae antigen in the urine without overt evidence of clinical pneumonia - Secondary Discharge Diagnosis Chronic Problems Hypertension (Chronic) History of appendectomy (Chronic) Hospital Course and Treatment Operations: None Procedures: Colonoscopy Summary of Care Provided: The patient is a 79 year old F was seen in the emergency room at [facility] with a chief complaint of bright red rectal bleeding. Patient had been seen in the emergency room 1 day prior and was diagnosed as having influenza A. Work-up in the emergency room included a CBC which showed a white blood cell count at 11.7, hemoglobin was 9.1. The patient's hemoglobin the day before was 12.7. EKG revealed a sinus tachycardia with frequent PACs. Patient was admitted to [place] [address], she was given IV fluids and packed red blood cells (1 unit), she was maintained on Tamiflu, she was seen in consultation by general surgery. She underwent a colonoscopy which revealed no active lower GI bleeding, there is a friable area in the cecum which could be ischemic colitis. Patient was readied for discharge but she could not be weaned from nasal cannula oxygen necessitating her stay until the following day. On 01/12/2020, patient was checked at rest on room air and her oxygen saturation was 85%, on ambulation with oxygen at 2 L, her pulse ox was 94%. Patient was set up with portable oxygen at home and is expected to use it in the home and outside the home when ambulating and at rest. On 01/12/2020, patient was seen and examined: On examination she appeared in good health and spirits. Vital signs as documented. Skin warm and dry and without overt rashes. Neck without JVD. Lungs-decreased breath sounds bilaterally. Heart exam notable for regular rhythm, normal sounds and absence of murmurs, rubs or gallops. Abdomen unremarkable and without evidence of organomegaly, masses, or abdominal aortic enlargement. Extremities nonedematous. Neuro: Cranial nerves II through XII are grossly intact, no focal motor deficits were noted, sensation to light touch and pinprick is intact. Psych: Patient is alert and oriented x3, she does not appear anxious or depressed On 01/12/2020, patient was seen and examined and felt to be stable for discharge. A review of the patient's medical record after discharge noted that the patient was positive for strep pneumonia antigen in the urine, I contacted the patient on 01/14/2020, she had no signs or symptoms of pneumonia, I called in a prescription for Keflex 500 mg 4 times a day x7 days to ensure that the patient underwent treatment for pneumonia due to her concurrent influenza A infection. - Physical Exam Vitals/I&O's: Vital Signs Temp Pulse Resp BP Pulse Ox 98.3 F 104 H 20 H 131/80 H 98 01/12/20 15:15 01/12/20 15:15 01/12/20 15:15 01/12/20 15:15 01/12/20 15:15 Oxygen Flow Rate (L/min) [ 2 AMBULATION with Oxygen] Oxygen Flow Rate (L/min) 3 Oxygen Delivery Method Nasal Cannula Weight: 48 kg Body Mass Index (BMI) 19.3 Intake and Output for Last 24 Hours 01/12/20 01/13/20 01/14/20 23:59 23:59 23:59 Intake Total 2178.33 / 2178.33 Output Total 700 / 700 Balance 1478.33 / 1478.33 Microbiology Past 72 Hours 01/12/20 02:15 Urine, Clean Catch Legionella Antigen - Final 01/12/20 02:15 Urine, Clean Catch Streptococcus pneumoniae Antigen (M - Final Streptococcus pneumoniae Discharge Activity: Return to Normal Activity Weight Bearing Status: Full weight bearing Home Medications: Medications to take at Discharge Ascorbic Acid [Vitamin C] 500 mg PO DAILY 08/20/18 Carvedilol [Coreg (Beta Tod)] 12.5 mg PO BID 08/20/18 Cholecalciferol (Vitamin D3) [Vitamin D3] 5,000 unit PO DAILY 08/20/18 Lisinopril [Zestril] 40 mg PO DAILY 08/20/18 Oseltamivir Phosphate [Tamiflu] 75 mg PO BID #10 cap 01/08/20 Albuterol IH (ProAir) [Proair Hfa (SP)Vent Pts] 2 puff INHALATION 4X/DAY #1 inhaler 01/12/20 Following Prescrptions Were Given to Patient: Albuterol IH (ProAir) [Proair Hfa (SP)Vent Pts] 2 puff INHALATION 4X/DAY #1 inhaler Primary Care Physician: Raven Ornelas MD [Primary Care Provider] - Please follow up with your Primary Care Physician in: in 1-2 weeks Disposition: Home Minutes spent on discharge:: 32 Patient Condition:: Stable Medical Necessity - Tobacco Use Smoking Status: Current every day smoker Tobacco Use: Cigarettes Meaningful Use Info Meaningful Use Diagnoses (Choose all that apply): None applicable Code Visit Inpatient E&M: 51175 Disch Hosp
== END 2020-01-12 15:36 | disposition home or self-care (01) | DRG 393 ==
LOC: ED 20:57 → MS3 21:15
PROVIDERS: Anesthesiology; Surgery; Admitting Provider Hospitalist; Emergency Provider Emergency Medicine; PCP Internal Medicine; Visit Provider Internal Medicine
PROC: 0DJD8ZZ Inspection of Lower Intestinal Tract, Via Natural or Artificial Opening Endoscopic (ICD-10-PCS; CPT 45378; principal; 2020-01-11 15:55)
DX: K55.9 Vascular disorder of intestine, unspecified (principal); E43 Unspecified severe protein-calorie malnutrition; K57.31 Diverticulosis of large intestine without perforation or abscess with bleeding; J10.00 Influenza due to other identified influenza virus with unspecified type of pneumonia; D62 Acute posthemorrhagic anemia; Z68.1 Body mass index [BMI] 19.9 or less, adult; I10 Essential (primary) hypertension; D12.2 Benign neoplasm of ascending colon; J44.9 Chronic obstructive pulmonary disease, unspecified; R09.02 Hypoxemia; F17.210 Nicotine dependence, cigarettes, uncomplicated; I49.1 Atrial premature depolarization
CPT/HCPCS: 36415; 71045; 71046; 74177; 80048; 83605; 85014; 85018; 85025; 85610; 85730; 86850; 86900; 86901; 86920; 86922; 87040; 87449; 87804; 88305; 93005; 94640; 96361; 96374; 96375; 97802; 99284; 99285; 99406; J7030; J7040; J7120; P9016; Q9967; A4216; J2405; J3490